=== PATIENT | male | born 1985 | race Caucasian/White ===

== ENCOUNTER 2024-04-10 17:30 | Emergency (ER) | payer MEDICAID ==
[~2024-04-10] VITALS: Ht 188 cm; Wt 102.8 kg
[2024-04-10 17:31] VITALS: BP 170/116; PULSE 90; RESP 16; TEMP 98; O2SAT 98
[2024-04-10] MEDS ORDERED: HYDR-3686 PO (17:57)
[2024-04-10] MEDS: hydrOXYzine 25 MG tablet PO ONE (19:08)
== END 2024-04-10 20:55 | disposition home or self-care (01) ==
LOC: ER 17:31
DX: G47.00 Insomnia, unspecified (principal); F41.9 Anxiety disorder, unspecified; Z88.6 Allergy status to analgesic agent
CPT/HCPCS: 99283; Q0177